=== PATIENT | male | born 1975 | race Caucasian/White ===

== ENCOUNTER 2020-02-12 06:49 | Emergency (ER) | payer OTHER, SELFPAY ==
[2020-02-12] MEDS ORDERED: Ibuprofen 800 MG TAB ONE (07:34)
== END 2020-02-12 07:44 | disposition home or self-care (01) ==
LOC: MADERS 06:49
DX: M62.838 Other muscle spasm (principal); M54.5 Low back pain; Z87.442 Personal history of urinary calculi; F17.200 Nicotine dependence, unspecified, uncomplicated
CPT/HCPCS: 99283

== ENCOUNTER 2020-03-08 19:29 | Emergency (ER) | payer SELFPAY ==
[2020-03-08] MEDS ORDERED: Adacel (T-DAP) 0.5 ML SYRINGE ONE (19:40)
[2020-03-08] MEDS ORDERED: Lidocaine 1% w/Epinephrine 1:100K 20 ML VIAL ONE ×2 (19:59→20:00)
--- NOTE | 2020-03-08 20:12 | RAD ---
RIGHT TIBIA FIBULA: Indications: Soft tissue foreign body. FINDINGS: There is a metallic wire seen within the lateral soft tissues mid fibula. No osseous involvement iden tified. IMPRESSION: Soft tissue foreign body consistent with a wire in the lateral soft tissues. No osseous involvement i dentified. POS: [facility]W
[2020-03-08] MEDS ORDERED: Amoxicillin/Potassium Clav 875 MG TAB ONE (20:22)
== END 2020-03-08 20:26 | disposition home or self-care (01) ==
LOC: MADERS 19:29
DX: S81.841A Puncture wound with foreign body, right lower leg, initial encounter (principal); F17.200 Nicotine dependence, unspecified, uncomplicated; Z87.442 Personal history of urinary calculi; W26.8XXA Contact with other sharp object(s), not elsewhere classified, initial encounter
CPT/HCPCS: 90471; 90715